=== PATIENT | male | born 1940 | race Caucasian/White ===

== ENCOUNTER 2018-11-03 13:09 | Outpatient (CLI) | payer MEDICARE, OTHER ==
--- NOTE | 2018-11-03 15:54 | ULT ---
ULTRASOUND RETROPERITONEUM COMPLETE: (RENAL) Date: 11/03/18 HISTORY: 78-year-old male with chronic kidney disease Stage 3, ICD-10: N18.3. COMPARISON: None. FINDINGS: Right kidney: 10 x 4.5 x 4.5 cm. Left kidney: 10.5 x 5 x 5.5 cm. There is an approximately 2 x 1.5 x 1.5 cm pedunculated exophytic hypoechoic mass protruding from the inferior pole cortical surface of the left kidney. This is probably a cyst. CT of lumbar spine of demonstrates an approximately 1 cm round mass with moderately high density that probably corre sponds to this. This is consistent with a hemorrhagic renal cyst. There is no hydronephrosis bilaterally. Bilateral renal parenchymal echogenicity and parenchymal thickness are within normal limits. Urinary bladder volume is 95 mL at the time of this scan. IMPRESSION: 1. A 2 x 1.5 cm pedunculated exophytic mass protruding from the left renal lower pole cortex is prob ably a small hemorrhagic renal cyst. 2. Otherwise negative. PRASHANT Cain POS: JOSE
== END 2018-11-03 13:10 | disposition home or self-care (01) ==
LOC: BICULT 13:09
PROVIDERS: ATTEND Internal Medicine Nephrology
DX: N18.3 Chronic kidney disease, stage 3 (moderate) (principal); N28.89 Other specified disorders of kidney and ureter
CPT/HCPCS: 76770

== ENCOUNTER 2019-03-30 09:48 | Outpatient (CLI) | payer MEDICARE, OTHER ==
--- NOTE | 2019-03-30 12:05 | CT ---
CT LUMBAR SPINE: Multiple axial tomograms obtained through the lumbar spine with multiplanar reconstruction. INDICATION: Low back pain. History of prior back surgery. COMPARISON: Comparison is made to CT lumbar spine dated 04/03/2016. Comparison is also made to MRI lumbar spine . FINDINGS: Lumbar vertebrae maintain normal height and alignment. Loss of disk space with degenerative disk and end plate changes at L5-S1 again noted. Degenerative changes at this level are similar in appearanc e to the 04/03/2016 exam. Vacuum phenomenon at this level again noted with hypertrophic change. Post operative changes are noted with pedicle screws on the left at L5 and S1, unchanged in position. Vernon inectomy change posteriorly at L4-5. At L1-2, mild disk bulge. Mild facet hypertrophy. No significant central canal or foraminal stenosis . At L2-3, mild diffuse disk bulge. Moderate facet and ligamentous hypertrophy. Moderate central johnson l stenosis. Not significantly changed from prior exam. At L3-4, diffuse disk bulge flattens the thecal sac. Facet and ligamentous hypertrophy is more promi nent. Moderate to severe central canal stenosis. Similar to the prior exam. Bilateral foraminal en croachment secondary to disk bulge and facet hypertrophy. At L4-5, diffuse disk bulge. Facet hypertrophy. Posterior laminectomy change. No significant centr al canal stenosis. Mild foraminal encroachment due to facet hypertrophy. At L5-S1, degenerative disk change as noted above. Posterior disk bulge and hypertrophic spurring ab uts the thecal sac. This results in mild central canal stenosis. Bilateral foraminal stenosis secon mj to bony hypertrophic change encroaching into both foramina. IMPRESSION: Prominent degenerative disk and end plates at L5-S1. Postoperative changes at L5-S1 and at L4-5. Mo derate to severe central canal stenosis at L2-3 and L3-4 as noted above. Not significantly changed f rom prior exam. POS: ADRIAN
== END 2019-03-30 09:49 | disposition home or self-care (01) ==
LOC: BICCT 09:48
PROVIDERS: ATTEND Neurological Surgery
DX: M54.5 Low back pain (principal); M48.062 Spinal stenosis, lumbar region with neurogenic claudication; M51.37 Other intervertebral disc degeneration, lumbosacral region; Z98.890 Other specified postprocedural states
CPT/HCPCS: 72131

== ENCOUNTER 2019-04-15 13:14 | Outpatient (CLI) | payer MEDICARE, OTHER ==
--- NOTE | 2019-04-15 14:48 | ULT ---
ULTRASOUND RENAL: DATE: 04/15/2019 HISTORY: Follow-up renal cyst in 79-year-old male COMPARISON: Ultrasound of 11/03/2018 FINDINGS: There is a pedunculated, exophytic cyst arising from the superficial cortical surface of the left felipe al lower pole currently measuring 2 x 2 x 1.5 cm. It is better visualized on the current ultrasound compared to the prior, and appears to be anechoic, with no wall thickening. Right kidney: 10.5 x 6 x 6 cm. Left kidney: 11 x 5 x 5.5 cm. No hydronephrosis. Unremarkable urinary bladder. No major interval change overall. IMPRESSION: 1) benign pedunculated left renal cyst. 2) otherwise negative
== END 2019-04-15 13:15 | disposition home or self-care (01) ==
LOC: BICULT 13:14
PROVIDERS: ATTEND Urology
DX: N28.1 Cyst of kidney, acquired (principal)
CPT/HCPCS: 76770

== ENCOUNTER 2019-06-27 15:36 | Outpatient (CLI) | payer MEDICARE, OTHER ==
[2019-06-27 17:52] LABS: #Eosinphils 0.3 thou/uL (0.0-0.7); #Lymphocytes 1.5 thou/uL (1.20-3.40); #Monocytes 0.7 thou/uL (0.11-0.59); #Neutrophils 5.5 thou/uL (1.40-6.50); %Basophils 0.2 % (0.0-1.0); %Eosinophils 3.7 % (0.0-10.0); %Lymphocytes 18.1 % (21.0-51.0); %Monocytes 9.2 % (0.0-10.0); %Neutrophils 68.7 % (42.0-75.0); Mean Corpuscular HGB CONC 32.9 g/dL (32.0-36.0); Mean Corpuscular Hemoglobin 28.6 pg (27.0-31.0); Mean Corpuscular Volume 87.1 fL (78.0-98.0); Mean Platelet Volume 6.2 fL (7.4-10.4); Platelet Count 234 thou/uL (130-400); RBC Distribution Width 13.8 % (11.5-14.5); Red Blood Cell (RBC) Count 4.89 mill/uL (4.70-6.10)
[2019-06-27 18:15] LABS: ALT (SGPT) 44 U/L (8-55); AST (SGOT) 24 U/L (5-34); Albumin 4.1 g/dL (3.4-4.8); Alkaline Phosphatase 94 U/L (40-150); Anion Gap 12 mmol/L (10-20); BUN (Urea Nitrogen) 27 mg/dL (8.4-25.7); Calc. Creatinine Clearance 0 mL/min (70-130); Calcium 10.9 mg/dL (7.8-10.44); Carbon Dioxide 27 mmol/L (23-31); Chloride 104 mmol/L (98-107); Estimated GFR-MDRD 39; Globulin 2.8 g/dL (2.4-3.5); Glucose 111 mg/dL (83-110); Protein, Total 6.9 g/dL (5.8-8.1); Sodium 138 mmol/L (136-145)
--- NOTE | 2019-06-28 22:58 | EKG ---
Test Reason : Blood Pressure : / mmHG Vent. Rate : 075 BPM Atrial Rate : 075 BPM P-R Int : 174 ms QRS Dur : 136 ms QT Int : 410 ms P-R-T Axes : 046 -42 035 degrees QTc Int : 457 ms Normal sinus rhythm Left axis deviation Right bundle branch block Abnormal ECG When compared with ECG of 11-DEC-2016 09:20, Premature atrial complexes are no longer Present Confirmed by Harini VILLALTA ([id number]) on 06/28/2019 10:58:19 PM Referred By: RONALDO Confirmed By:Harini VILLALTA
== END 2019-06-27 15:37 | disposition home or self-care (01) ==
LOC: LABBT 15:36
PROVIDERS: ATTEND Surgery
DX: Z01.818 Encounter for other preprocedural examination (principal); D17.1 Benign lipomatous neoplasm of skin and subcutaneous tissue of trunk
CPT/HCPCS: 80053; 85025; 93005; 93010

== ENCOUNTER 2019-07-04 07:19 | Day surgery (SDC) | payer MEDICARE, OTHER ==
[2019-06-27 16:48] VITALS: BMI 33.3
[2019-07-04] MEDS ORDERED: ceFAZolin Sodium (SDC) 2 GM/100 ML BAG ONE (08:48)
[2019-07-04] MEDS ORDERED: Bupivacaine HCl 0.5%/Epinephrine 1:200,000/PF 30 ml Vial ONE (09:25)
[2019-07-04] MEDS ORDERED: Lidocaine 2% PF 5 ML VIAL ONE (09:25)
[2019-07-04] MEDS ORDERED: Fentanyl 100 MCG/2 ML VIAL ONE (09:34)
--- NOTE | 2019-07-04 11:04 | OP ---
DATE OF PROCEDURE: 07/04/2019 PREOPERATIVE DIAGNOSIS: Lipoma of left upper back. PROCEDURE PERFORMED: Excisional biopsy. INDICATIONS: A 79-year-old male, who had an enlarging soft tissue mass of the left upper back, started to cause him pain. 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 DESCRIPTION OF PROCEDURE: After an informed consent was obtained, the patient was taken to the operating room and given general mask anesthesia, placed in the right lateral decubitus position, pressure portions were padded. His back was prepped and draped in usual fashion. A transverse incision was performed. Local anesthesia was first infiltrated subcutaneously and deep. Transverse incision was performed. Subcu divided sharply. The capsule was dissected out circumferentially and the lesion removed. Hemostasis was achieved with electrocautery. The wound was irrigated. Irrigation fluid removed. Subcu reapproximated with interrupted 2-0 Vicryl. The skin was closed with a running subcuticular 4-0 Rapide. Steri-Strips applied. Sterile bandage applied. The patient tolerated the procedure well, transferred to Recovery in good condition. Sponge and needle count verified correct x2. Job ID: [id number]
== END 2019-07-04 11:51 | disposition home or self-care (01) ==
LOC: SDC 07:19
PROVIDERS: ATTEND Surgery
PROC: 0JB70ZZ Excision of Back Subcutaneous Tissue and Fascia, Open Approach (ICD-10-PCS; principal; 2019-07-04)
DX: D17.1 Benign lipomatous neoplasm of skin and subcutaneous tissue of trunk (principal); M19.90 Unspecified osteoarthritis, unspecified site; J44.9 Chronic obstructive pulmonary disease, unspecified; I10 Essential (primary) hypertension; G47.33 Obstructive sleep apnea (adult) (pediatric); Z86.73 Personal history of transient ischemic attack (TIA), and cerebral infarction without residual deficits; Z87.891 Personal history of nicotine dependence; Z79.1 Long term (current) use of non-steroidal anti-inflammatories (NSAID); Z79.82 Long term (current) use of aspirin; Z79.899 Other long term (current) drug therapy
CPT/HCPCS: 88304; J0670; J0690; J2001; J3010

== ENCOUNTER 2022-08-27 10:01 | Outpatient (CLI) | payer MEDICARE ==
[2022-08-27] MEDS ORDERED: Iopamidol-370 76% 500 ML 1 ML ONE (14:29)
== END 2022-08-27 10:02 | disposition home or self-care (01) ==
LOC: BICCT 10:01
PROVIDERS: ATTEND Family Medicine
DX: R10.31 Right lower quadrant pain (principal); N28.1 Cyst of kidney, acquired; R91.1 Solitary pulmonary nodule; K57.30 Diverticulosis of large intestine without perforation or abscess without bleeding
CPT/HCPCS: 74177; 82565; Q9967

== ENCOUNTER 2022-09-04 13:38 | Outpatient (CLI) | payer MEDICARE | END 2022-09-04 13:39 | disposition home or self-care (01) | LOC: BICCT 13:38 | PROVIDERS: ATTEND Family Medicine | DX: N28.1 Cyst of kidney, acquired (principal); R91.8 Other nonspecific abnormal finding of lung field; K57.10 Diverticulosis of small intestine without perforation or abscess without bleeding; K57.30 Diverticulosis of large intestine without perforation or abscess without bleeding | CPT/HCPCS: 74170; 82565 ==

== ENCOUNTER 2024-01-07 11:14 | Outpatient (CLI) | payer MEDICARE | END 2024-01-07 11:15 | disposition home or self-care (01) | LOC: SCSMRI 11:14 | PROVIDERS: ATTEND Nurse Practitioner Family | DX: M48.062 Spinal stenosis, lumbar region with neurogenic claudication (principal); M47.816 Spondylosis without myelopathy or radiculopathy, lumbar region; M51.36 Other intervertebral disc degeneration, lumbar region; M48.07 Spinal stenosis, lumbosacral region | CPT/HCPCS: 72148 ==

== ENCOUNTER 2024-05-04 09:58 | Inpatient (IN) | payer MEDICARE ==
[2024-05-04] MEDS ORDERED: Iopamidol-370 76% 500 ML MDV (1 ML CHARGE) ONE (10:07)
[2024-05-04] MEDS ORDERED: Cefepime 2 GM VIAL ONE (10:25)
[2024-05-04] MEDS ORDERED: Sodium Chloride 0.9% 100 ML ONE (10:25)
[2024-05-04 10:38] LABS: #Basophils Less than 0.03 10x3/uL (0.0-0.2); #Eosinphils Less than 0.03 10x3/uL (0.0-0.7); %Basophils 0.1 % (0.0-1.0); %Neutrophils 87.2 % (42.0-75.0); Hematocrit 32.7 % (42.0-52.0); Hemoglobin 11.2 g/dL (14.0-18.0); Mean Corpuscular HGB CONC 34.3 g/dL (32.0-36.0); Mean Corpuscular Hemoglobin 26.7 pg (27.0-31.0); Mean Corpuscular Volume 77.9 fL (78.0-98.0); Mean Platelet Volume 9.3 fL (7.4-10.4); Platelet Count 220 10x3/uL (130-400); RBC Distribution Width 14.6 % (11.5-14.5)
[2024-05-04] MEDS ORDERED: Vancomycin 1 GM/200 ML (FROZEN) BAG ONE (10:48)
[2024-05-04 10:53] LABS: ALT (SGPT) 32 U/L (8-55); AST (SGOT) 67 U/L (5-34); Albumin 2.8 g/dL (3.4-4.8); Alkaline Phosphatase 62 U/L (40-110); Anion Gap 17 mmol/L (10-20); BUN (Urea Nitrogen) 30 mg/dL (8.4-25.7); Bilirubin, Total 1.3 mg/dL (0.2-1.2); CK (CPK) 752 U/L (30-200); Calc. Creatinine Clearance 0 mL/min (70-130); Calcium 10.5 mg/dL (7.8-10.44); Carbon Dioxide 18 mmol/L (23-31); Chloride 98 mmol/L (98-107); Estimated GFR 35; Globulin 3.5 g/dL (2.4-3.5); Glucose 79 mg/dL (83-110); Lipase 22 U/L (8-78); Magnesium 1.5 mg/dL (1.6-2.6); Protein, Total 6.3 g/dL (5.8-8.1); Sodium 130 mmol/L (136-145)
[2024-05-04 10:57] LABS: INR-International Normal Ratio 1.3; PTT 32.1 sec (22.9-36.1); Prothrombin Time 15.9 sec (12.0-14.7)
[2024-05-04] MEDS ORDERED: NOREPINEPHRINE 8 MG/250 ML-D5W 250 ML ONE (11:23)
[2024-05-04 11:58] LABS: Bacteria/HPF None Seen HPF (None Seen); Bilirubin Negative (Negative); Blood, Urine 1+ (Negative); CAUTI Indications for Culture Alt mental st,lethar; Clarity Clear (Clear); Glucose, Urine (Dipstick) Normal (Negative); Ketone, Urine Negative (Negative); Leukocyte Negative Leu/uL (Negative); Nitrite Negative (Negative); Protein, Urine (Dipstick) 50 mg/dL (Neg-Trace); RBC/HPF 0-3 HPF (0-3); Specific Gravity, Urine 1.025 (1.002-1.036); Squamous Epithelial None Seen HPF (0-3); Urobilinogen Normal mg/dL (Less than 2); WBC/HPF 0-3 HPF (0-3)
[2024-05-04 12:11] LABS: Urine Culture Reflex No No
[2024-05-04] MEDS ORDERED: Lidocaine 1% PF 5 ML VIAL ONE (12:26)
[2024-05-04] MEDS ORDERED: Ondansetron PF 4 MG/2 ML Vial IVP PRN (13:21)
[2024-05-04] MEDS ORDERED: Acetaminophen 325 MG TAB PO PRN (13:21)
[2024-05-04] MEDS ORDERED: Electrolyte Replacement Protocol 1 EACH FS SCH (13:30)
[2024-05-04] MEDS ORDERED: NOREPINEPHRINE 8 MG/250 ML-D5W 250 ML IVPB SCH (13:30)
[2024-05-04] MEDS ORDERED: Ipratropium/Albuterol 3 ML NEB NEB PRN (13:57)
[2024-05-04] MEDS ORDERED: Electrolyte Replacement Protocol FS PRN (14:00)
[2024-05-04 14:25] VITALS: BMI 32.1
[2024-05-04] MEDS: Digoxin 0.5 MG/2 ML AMP SLOW IVP SCH (14:50)
[2024-05-04] MEDS: Potassium Chloride 20 MEQ TAB PO SCH (14:50)
[2024-05-04] MEDS: Piperacillin/Tazobactam 3.375 GM in Sodium Chloride 0.9% 100 ML IVPB SCH ×2 (14:51→21:42)
[2024-05-04] MEDS: Hydrocortisone Sod Succ/PF 100 mg/2 ml Vial IVP SCH (14:51)
[2024-05-04] MEDS: Magnesium 2 GM/50 ML(in water) 2 GM in Premix 1 BAG IVPB SCH (14:51)
[2024-05-04] MEDS: Enoxaparin 120 MG/0.8 ML SYRINGE SC SCH (15:00)
[2024-05-04] MEDS: Vancomycin 1 GM in Premix 1 BAG IVPB SCH (15:01)
[2024-05-04 15:37] LABS: Lactic Acid 0.9 mmol/L (0.5-2.2)
[2024-05-04] MEDS: Potassium Chloride 20 MEQ in Lactated Ringer's 1,000 ML IV SCH (15:54)
[2024-05-04] MEDS ORDERED: Piperacillin/Tazobactam 3.375 GM in Sodium Chloride 0.9% 100 ML IVPB SCH (20:00)
[2024-05-04] MEDS ORDERED: Vancomycin 1 GM in Premix 1 BAG IVPB SCH (21:00)
[2024-05-04] MEDS: Famotidine/PF 20 mg/2ml Vial SLOW IVP SCH (21:40)
[2024-05-05 04:38] LABS: #Basophils Less than 0.03 10x3/uL (0.0-0.2); #Eosinphils Less than 0.03 10x3/uL (0.0-0.7); %Lymphocytes 6.5 % (21.0-51.0); %Neutrophils 85.7 % (42.0-75.0); Hematocrit 29.3 % (42.0-52.0); Hemoglobin 9.7 g/dL (14.0-18.0); Mean Corpuscular HGB CONC 33.1 g/dL (32.0-36.0); Mean Corpuscular Hemoglobin 26.6 pg (27.0-31.0); Mean Corpuscular Volume 80.3 fL (78.0-98.0); Mean Platelet Volume 9.4 fL (7.4-10.4); Platelet Count 177 10x3/uL (130-400); Red Blood Cell (RBC) Count 3.65 mill/uL (4.70-6.10)
[2024-05-05 05:01] LABS: Vancomycin, Random 13.1 ug/mL (See Comment)
[2024-05-05 05:03] LABS: Anion Gap 10 mmol/L (10-20); BUN (Urea Nitrogen) 32 mg/dL (8.4-25.7); Calc. Creatinine Clearance 66 mL/min (70-130); Calcium 9.8 mg/dL (7.8-10.44); Carbon Dioxide 22 mmol/L (23-31); Chloride 108 mmol/L (98-107); Estimated GFR 56; Glucose 87 mg/dL (83-110); Potassium 3.3 mmol/L (3.5-5.1); Sodium 137 mmol/L (136-145)
[2024-05-05] MEDS: Vancomycin HCl 750 MG in Sodium Chloride 0.9% 250 ML 250 ML IVPB SCH (05:56)
[2024-05-05] MEDS: Enoxaparin 120 MG/0.8 ML SYRINGE SC SCH (08:43)
[2024-05-05] MEDS: Potassium Chloride 20 MEQ TAB PO SCH (08:43)
[2024-05-05] MEDS: Saccharomyces boulardii 250 MG CAP PO SCH (08:43)
[2024-05-05] MEDS: Hydrocortisone Sod Succ/PF 100 mg/2 ml Vial IVP SCH (23:25)
[2024-05-05] MEDS: Famotidine/PF 20 mg/2ml Vial SLOW IVP SCH (23:25)
[2024-05-06 06:10] LABS: #Basophils Less than 0.03 10x3/uL (0.0-0.2); #Eosinphils Less than 0.03 10x3/uL (0.0-0.7); %Basophils 0.1 % (0.0-1.0); %Eosinophils 0.2 % (0.0-10.0); %Lymphocytes 10.6 % (21.0-51.0); %Monocytes 5.9 % (0.0-10.0); %Neutrophils 79.1 % (42.0-75.0); Hematocrit 27.7 % (42.0-52.0); Hemoglobin 8.8 g/dL (14.0-18.0); Mean Corpuscular HGB CONC 31.8 g/dL (32.0-36.0); Mean Corpuscular Hemoglobin 26.2 pg (27.0-31.0); Mean Corpuscular Volume 82.4 fL (78.0-98.0); Mean Platelet Volume 9.4 fL (7.4-10.4); Platelet Count 202 10x3/uL (130-400); RBC Distribution Width 15.4 % (11.5-14.5); Red Blood Cell (RBC) Count 3.36 mill/uL (4.70-6.10)
[2024-05-06 06:32] LABS: ALT (SGPT) 47 U/L (8-55); AST (SGOT) 70 U/L (5-34); Albumin 2.5 g/dL (3.4-4.8); Alkaline Phosphatase 48 U/L (40-110); Anion Gap 10 mmol/L (10-20); BUN (Urea Nitrogen) 26 mg/dL (8.4-25.7); Bilirubin, Total 0.6 mg/dL (0.2-1.2); Calc. Creatinine Clearance 62 mL/min (70-130); Calcium 9.8 mg/dL (7.8-10.44); Carbon Dioxide 16 mmol/L (23-31); Chloride 111 mmol/L (98-107); Estimated GFR 53; Globulin 3.5 g/dL (2.4-3.5); Glucose 90 mg/dL (83-110); Potassium 3.8 mmol/L (3.5-5.1); Sodium 133 mmol/L (136-145)
[2024-05-06] MEDS: Aspirin 81 mg Enteric Coated Tablet PO SCH (08:58)
[2024-05-06] MEDS: DULoxetine 60 MG CAP PO SCH (08:58)
[2024-05-06] MEDS: cefTRIAXone\\ROCEPHIN 2 GM in Sodium Chloride 0.9% 100 ML IVPB SCH (12:50)
[2024-05-06] MEDS: Ipratropium/Albuterol 3 ML NEB NEB SCH (17:22)
[2024-05-06] MEDS: Mometasone 100 MCG HFA INHALER (RT USE) INH SCH (19:21)
[2024-05-06] MEDS: HYDROcodone/Acetaminophen 5/325 mg Tablet PO PRN (20:15)
[2024-05-06] MEDS: ALPRAZolam 0.5 MG TAB PO PRN (20:18)
[2024-05-06] MEDS ORDERED: ALPRAZolam 0.5 MG TAB PO SCH (21:00)
[2024-05-07 05:55] LABS: #Basophils Less than 0.03 10x3/uL (0.0-0.2); %Basophils 0.2 % (0.0-1.0); %Eosinophils 2.1 % (0.0-10.0); %Lymphocytes 18.4 % (21.0-51.0); %Monocytes 6.4 % (0.0-10.0); Hematocrit 30.7 % (42.0-52.0); Hemoglobin 9.9 g/dL (14.0-18.0); Mean Corpuscular HGB CONC 32.2 g/dL (32.0-36.0); Mean Corpuscular Hemoglobin 26.5 pg (27.0-31.0); Mean Corpuscular Volume 82.1 fL (78.0-98.0); Mean Platelet Volume 9.5 fL (7.4-10.4); Platelet Count 294 10x3/uL (130-400); RBC Distribution Width 15.8 % (11.5-14.5); Red Blood Cell (RBC) Count 3.74 mill/uL (4.70-6.10)
[2024-05-07 06:22] LABS: ALT (SGPT) 57 U/L (8-55); AST (SGOT) 67 U/L (5-34); Albumin 2.5 g/dL (3.4-4.8); Alkaline Phosphatase 48 U/L (40-110); Anion Gap 13 mmol/L (10-20); BUN (Urea Nitrogen) 18 mg/dL (8.4-25.7); Bilirubin, Total 0.5 mg/dL (0.2-1.2); Calc. Creatinine Clearance 33 mL/min (70-130); Calcium 9.8 mg/dL (7.8-10.44); Carbon Dioxide 21 mmol/L (23-31); Chloride 107 mmol/L (98-107); Estimated GFR 62; Globulin 3.4 g/dL (2.4-3.5); Glucose 78 mg/dL (83-110); Potassium 3.1 mmol/L (3.5-5.1); Protein, Total 5.9 g/dL (5.8-8.1); Sodium 138 mmol/L (136-145)
[2024-05-07] MEDS: Metoprolol Tartrate 25 MG TAB PO SCH (09:47)
[2024-05-08 04:49] LABS: Hematocrit 27.5 % (42.0-52.0); Hemoglobin 8.9 g/dL (14.0-18.0); Mean Corpuscular HGB CONC 32.4 g/dL (32.0-36.0); Mean Corpuscular Hemoglobin 26.5 pg (27.0-31.0); Mean Corpuscular Volume 81.8 fL (78.0-98.0); Mean Platelet Volume 9.2 fL (7.4-10.4); Platelet Count 275 10x3/uL (130-400); RBC Distribution Width 15.8 % (11.5-14.5); Red Blood Cell (RBC) Count 3.36 mill/uL (4.70-6.10)
[2024-05-08 04:50] LABS: ALT (SGPT) 85 U/L (8-55); AST (SGOT) 94 U/L (5-34); Albumin 2.5 g/dL (3.4-4.8); Alkaline Phosphatase 48 U/L (40-110); Anion Gap 11 mmol/L (10-20); BUN (Urea Nitrogen) 12 mg/dL (8.4-25.7); Bilirubin, Total 0.5 mg/dL (0.2-1.2); Calc. Creatinine Clearance 75 mL/min (70-130); Calcium 9.6 mg/dL (7.8-10.44); Carbon Dioxide 21 mmol/L (23-31); Chloride 111 mmol/L (98-107); Estimated GFR 64; Globulin 3.1 g/dL (2.4-3.5); Glucose 89 mg/dL (83-110); Potassium 3.1 mmol/L (3.5-5.1); Protein, Total 5.6 g/dL (5.8-8.1); Sodium 140 mmol/L (136-145)
[2024-05-08 05:21] LABS: Anisocytosis SLIGHT = 6-15 cells HPF (0-5); Band 1 % (5-11); Burr Cells SLIGHT = 2-5 cells HPF (0-1); Eosinophils 3 % (0-10); Lymphocytes 10 % (21-51); Monocytes 1 % (0-10); Neutrophil 85 % (42-75); Nucleated RBC (Manual Ct) 1 % (0); Ovalocytes SLIGHT = 2-5 cells HPF (0-1); Platelet Adequacy Comment Platelets Normal; Polychromasia SLIGHT = 2-3 cells HPF (0-2)
[2024-05-08] MEDS ORDERED: Electrolyte Replacement Protocol FS PRN (07:45)
[2024-05-08] MEDS ORDERED: Electrolyte Replacement Protocol 1 EACH FS SCH (07:45)
[2024-05-08] MEDS: Potassium Chloride 20 MEQ TAB PO SCH ×2 (09:16→22:39)
[2024-05-08] MEDS: Finasteride 5 MG TAB PO SCH (11:59)
[2024-05-08] MEDS: Tamsulosin HCl 0.4 MG CAP PO SCH (11:59)
[2024-05-08] MEDS: Magnesium 2 GM/50 ML(in water) 2 GM in Premix 1 BAG IVPB SCH (12:08)
[2024-05-08 14:59] LABS: Reference Lab Name LABCORP
[2024-05-08 16:43] LABS: Potassium 3.1 mmol/L (3.5-5.1)
[2024-05-09 04:36] LABS: Hematocrit 26.7 % (42.0-52.0); Hemoglobin 8.6 g/dL (14.0-18.0); Mean Corpuscular HGB CONC 32.2 g/dL (32.0-36.0); Mean Corpuscular Hemoglobin 26.6 pg (27.0-31.0); Mean Corpuscular Volume 82.7 fL (78.0-98.0); Mean Platelet Volume 9.2 fL (7.4-10.4); Platelet Count 264 10x3/uL (130-400); RBC Distribution Width 15.9 % (11.5-14.5); Red Blood Cell (RBC) Count 3.23 mill/uL (4.70-6.10)
[2024-05-09 04:56] LABS: ALT (SGPT) 137 U/L (8-55); AST (SGOT) 132 U/L (5-34); Albumin 2.4 g/dL (3.4-4.8); Alkaline Phosphatase 48 U/L (40-110); Anion Gap 12 mmol/L (10-20); BUN (Urea Nitrogen) 9 mg/dL (8.4-25.7); Bilirubin, Total 0.5 mg/dL (0.2-1.2); Calc. Creatinine Clearance 74 mL/min (70-130); Calcium 9.5 mg/dL (7.8-10.44); Carbon Dioxide 21 mmol/L (23-31); Chloride 111 mmol/L (98-107); Estimated GFR 63; Globulin 2.9 g/dL (2.4-3.5); Glucose 105 mg/dL (83-110); Magnesium 2.2 mg/dL (1.6-2.6); Potassium 3.4 mmol/L (3.5-5.1); Protein, Total 5.3 g/dL (5.8-8.1); Sodium 141 mmol/L (136-145)
[2024-05-09 05:08] LABS: Band 7 % (5-11); Elliptocytes SLIGHT = 2-5 cells HPF (0-1); Eosinophils 3 % (0-10); Hypochromia SLIGHT = 6-15 cells HPF (0-5); Lymphocytes 15 % (21-51); Metamyelocyte 1 % (0-0); Monocytes 3 % (0-10); Neutrophil 71 % (42-75); Platelet Adequacy Comment Platelets Normal; Polychromasia SLIGHT = 2-3 cells HPF (0-2)
[2024-05-09] MEDS: Potassium Chloride 20 MEQ TAB PO SCH (09:53)
[2024-05-09] MEDS: Finasteride 5 MG TAB PO SCH (09:54)
[2024-05-09] MEDS: Tamsulosin HCl 0.4 MG CAP PO SCH (09:54)
[2024-05-09 11:46] VITALS: TEMP 98
[2024-05-09 14:05] LABS: Hematocrit 26.9 % (42.0-52.0); Hemoglobin 8.6 g/dL (14.0-18.0); Mean Corpuscular Volume 81.3 fL (78.0-98.0); Mean Platelet Volume 9.2 fL (7.4-10.4); Platelet Count 298 10x3/uL (130-400); RBC Distribution Width 16.2 % (11.5-14.5); Red Blood Cell (RBC) Count 3.31 mill/uL (4.70-6.10)
[2024-05-09 14:40] LABS: Anisocytosis SLIGHT = 6-15 cells HPF (0-5); Band 4 % (5-11); Burr Cells SLIGHT = 2-5 cells HPF (0-1); Eosinophils 3 % (0-10); Large Platelets 5.2 % (0-5); Lymphocytes 11 % (21-51); Monocytes 2 % (0-10); Myelocyte 1 % (0-0); Neutrophil 78 % (42-75); Ovalocytes SLIGHT = 2-5 cells HPF (0-1); Platelet Adequacy Comment Platelets Normal; Poikilocytosis SLIGHT = 6-15 cells HPF (0-5); Polychromasia SLIGHT = 2-3 cells HPF (0-2)
[2024-05-09 15:29] VITALS: BP 134/62
[2024-05-09 16:03] LABS: Campy jejuni + coli by PCR Negative (Negative); STEC Shiga Toxin 1+2 POSITIVE (Negative); Salmonella spp. by PCR POSITIVE (Negative); Shigella spp + EIEC by PCR Negative (Negative)
== END 2024-05-09 18:36 | disposition home or self-care (01) | DRG 871 ==
LOC: ERS 09:58 → CCU 13:23 → 2NO 05-05 21:59
PROVIDERS: ADMIT Family Medicine; ATTEND Internal Medicine
PROC: 3E03329 Introduction of Other Anti-infective into Peripheral Vein, Percutaneous Approach (ICD-10-PCS; principal; 2024-05-04)
PROC: 3E033XZ Introduction of Vasopressor into Peripheral Vein, Percutaneous Approach (ICD-10-PCS; 2024-05-04)
DX: A02.1 Salmonella sepsis (principal); R65.21 Severe sepsis with septic shock; E87.20 Acidosis, unspecified; N17.9 Acute kidney failure, unspecified; E87.1 Hypo-osmolality and hyponatremia; I24.89 Other forms of acute ischemic heart disease; I25.10 Atherosclerotic heart disease of native coronary artery without angina pectoris; E78.5 Hyperlipidemia, unspecified; N18.30 Chronic kidney disease, stage 3 unspecified; K52.9 Noninfective gastroenteritis and colitis, unspecified; K57.30 Diverticulosis of large intestine without perforation or abscess without bleeding; N28.1 Cyst of kidney, acquired; I45.10 Unspecified right bundle-branch block; I48.91 Unspecified atrial fibrillation; E87.6 Hypokalemia; I12.9 Hypertensive chronic kidney disease with stage 1 through stage 4 chronic kidney disease, or unspecified chronic kidney disease; D63.1 Anemia in chronic kidney disease; J44.9 Chronic obstructive pulmonary disease, unspecified; Z96.651 Presence of right artificial knee joint; Z98.890 Other specified postprocedural states; Z87.891 Personal history of nicotine dependence; Z79.82 Long term (current) use of aspirin; Z79.899 Other long term (current) drug therapy
CPT/HCPCS: 36415; 36416; 36556; 51702; 71045; 74177; 80048; 80053; 80202; 81001; 82550; 83605; 83690; 83735; 83880; 84484; 85025; 85610; 85730; 87040; 87077; 87086; 87149; 87186; 87324; 87449; 87505; 93005; 93306; 96361; 96365; 96366; 96368; J0692; J0696; J1160; J1650; J1720; J2543; J3370; J3370-JW; J3475; J3480; J3490; J7050; J7120; J7620; Q9967; S0028